=== PATIENT | female | born 1995 | race Caucasian/White ===

== ENCOUNTER 2017-09-13 13:54 | Inpatient (IN) | payer SELFPAY ==
--- NOTE | 2017-09-13 14:19 | ED ---
Psychiatric Complaint - HPI Summary HPI Summary: 22F w/ PMH of anxiety and depression presents with suicidal thought today. She states she occasionally has suicidal thought but today she felt like she was going to act on it. She states she was either going to drive to [facility] or drive off a bridge. She is seeing [facility] for mental health. She is on zoloft 25mg which she has been taking consistently. She take amitriptyline for chronic tension headaches. She states she has not been doing as well in school which is contributing to her depression. She has had a history of depression for 7 years but it has gotten worst this semester. She has a strong family and friend support system. She denies any drug or ETOH use. - History Of Current Complaint Chief Complaint: EDMentalHealth Time Seen by Provider: 09/13/17 13:55 - Allergies/Home Medications Allergies/Adverse Reactions: Allergies Allergy/AdvReac Type Severity Reaction Status Date / Time No Known Allergies Allergy Verified 09/13/17 14:14 Home Medications: Home Medications Amitriptyline TAB* [Elavil TAB*] 25 mg PO DAILY PRN 09/13/17 [History Confirmed 09/13/17] Sertraline* [Zoloft*] 25 mg PO DAILY 09/13/17 [History Confirmed 09/13/17] PMH/Surg Hx/FS Hx/Imm Hx Endocrine/Hematology History: Denies: Hx Anticoagulant Therapy Neurological History: Reports: Hx Headaches - Family History Known Family History: Positive: Other - anxiety, depression - Social History Alcohol Use: None Substance Use Type: Reports: None Hx Tobacco Use: No Review of Systems Negative: Fever Negative: Chest Pain Negative: Shortness Of Breath Positive: Depressed All Other Systems Reviewed And Are Negative: Yes Physical Exam Triage Information Reviewed: Yes Vital Signs Reviewed: Yes Appearance: Positive: Well-Appearing Skin: Positive: Warm, Dry Head/Face: Positive: Normal Head/Face Inspection Eyes: Positive: Normal, Conjunctiva Clear Respiratory/Lung Sounds: Positive: Clear to Auscultation, Breath Sounds Present Cardiovascular: Positive: Normal, RRR Abdomen Description: Positive: Nontender, Soft Bowel Sounds: Positive: Present Musculoskeletal: Positive: Normal Neurological: Positive: Normal Psychiatric: Positive: Depressed Diagnostics - Laboratory Result Diagrams: 09/13/17 14:25 09/13/17 14:25 Lab Statement: Any lab studies that have been ordered have been reviewed, and results considered in the medical decision making process. Course/Dx - Course Course Of Treatment: 22F w/ PMH of anxiety and depression presents with suicidal thought today. She states she occasionally has suicidal thought but today she felt like she was going to act on it. She states she was either going to drive to [facility] or drive off a bridge. She is seeing [facility] for mental health. She is on zoloft 25mg which she has been taking consistently. She take amitriptyline for chronic tension headaches. She states she has not been doing as well in school which is contributing to her depression. She has had a history of depression for 7 years but it has gotten worst this semester. She has a strong family and friend support system. She denies any drug or ETOH use. patient is medically clear for MHE. patient will be admitted voluntary. - Differential Dx/Clinical Impression Differential Diagnosis/HQI/PQRI: Positive: Anxiety, Depression, Suicidal Ideation Provider Diagnosis: Depression Discharge - Discharge Plan Condition: Stable [place] [place]
[2017-09-13 14:34] LABS: Hematocrit 42 % (35-47); Mean Corpuscular HGB Conc 33 g/dl (31-36); Mean Corpuscular Hemoglobin 30 pg (27-31); Mean Corpuscular Volume 91 fL (80-97); Mean Platelet Volume 8 um3 (7.4-10.4); Red Blood Count 4.62 10^6/ul (4.0-5.4); Red Cell Distribution Width 14 % (10.5-15); White Blood Count 10.2 10^3/ul (3.5-10.8)
[2017-09-13 14:50] LABS: ALT 15 U/L (7-52); AST 16 U/L (13-39); Albumin 4.8 g/dL (3.2-5.2); Alkaline Phosphatase 66 U/L (34-104); Anion Gap 7 mmol/L (2-11); BUN/Creatinine Ratio 14.8 (8-20); Blood Urea Nitrogen 12 mg/dL (6-24); CO2 Carbon Dioxide 25 mmol/L (22-32); Calcium 10.3 mg/dL (8.6-10.3); Chloride 104 mmol/L (101-111); EGFR African American 115.9 (>60); EGFR Non-African American 90.1 (>60); Globulin 3.3 g/dL (2-4); Glucose 91 mg/dL (70-100); Potassium 3.8 mmol/L (3.5-5.0); Sodium 136 mmol/L (133-145); Total Protein 8.1 g/dL (6.4-8.9)
[2017-09-13 14:55] LABS: Acetaminophen < 15 mcg/mL; Alcohol < 10 mg/dL (<10); Salicylate < 2.50 mg/dL (<30)
[2017-09-13 15:10] LABS: TSH (Thyroid Stimulating Horm) 0.73 mcIU/mL (0.34-5.60)
[2017-09-13 15:46] LABS: Urine Bacteria 1+ (Absent); Urine Bilirubin Negative (Negative); Urine Glucose Negative (Negative); Urine Nitrite Positive (Negative)
[2017-09-13 15:55] LABS: Benzodiazepine Urine Screen None Detected (None Detect)
[2017-09-14] MEDS ORDERED: Acetaminophen TAB* 325 MG PO PRN (02:19)
[2017-09-14] MEDS ORDERED: Al Hydrox/Mg Hydrox/Simet LIQ* 30 ML UDC PO PRN (02:19)
[2017-09-14 07:54] VITALS: BP 123/79
[2017-09-14] MEDS ORDERED: Sertraline* 25 MG TAB PO SCH (09:00)
[2017-09-14] MEDS: Vitamin THERAPEUTIC TAB PO SCH (09:57)
[2017-09-14 12:58] LABS: T4 5.57 mcg/mL (6.09-12.23)
[2017-09-14 13:04] LABS: Free T4 0.74 ng/dL (0.61-1.12)
[2017-09-14 13:12] LABS: Folate 15.16 ng/mL (>3.99)
[2017-09-14 13:14] LABS: Vitamin B12 215 pg/mL (180-914)
[2017-09-14] MEDS: FLUoxetine CAP* 20 MG PO SCH (15:39)
[2017-09-14] MEDS: clonazePAM TAB(*) 0.5 MG PO SCH (17:22)
[2017-09-14] MEDS ORDERED: Sulfamethox/Trimethoprim DS 800/160* TAB PO ONE (18:20)
[2017-09-14] MEDS ORDERED: Amitriptyline TAB* 25 MG PO SCH (21:00)
[2017-09-14] MEDS ORDERED: Amitriptyline TAB* 10 MG PO SCH (21:00)
[2017-09-14] MEDS ORDERED: Amitriptyline TAB* 10 MG PO ONE (23:00)
[2017-09-15] MEDS ORDERED: Sulfamethox/Trimethoprim DS 800/160* TAB PO SCH (09:00)
--- NOTE | 2017-09-15 10:53 | PN ---
Subjective - Subjective Service Type: [id number] [facility] Psyc Subjective: per nursing patient did very well overnight. upbeat. not appearing sad social with other patients. reading. optomistic about returning to school and following up with therapist and psychiatrist at [facility] outpatient clinic Objective - Appearance Appearance: Well Developed/Nourished Dysmorphic Features: No Hygiene: Normal Grooming: Well Kept - Behavior Psychomotor Activities: Normal Exhibits Abnormal Movement: No - Attitude and Relatedness Attitude and Relatedness: Appropriate Eye Contact: Good - Speech Quality: Unpressured Latencies: Normal Quantity: Appropriate - Mood Patient's Decription of Mood: "Good" - Affect Observed Affect: Non-labile Affect Consistent with: Euthymia - Thought Process Patient's Thought Process: Coherent Thought Content: No Passive Wish, No Suicidal Planning, No Homicidal Ideation, No Paranoid Ideation - Sensorium Experiencing Hallucinations: No, Sensorium is Clear Type of Hallucinations: Visual: No, Auditory: No, Command: No - Level of Consciousness Level of Consciousness: Alert Orientation: Yes Intact, Yes Orientated to Time, Yes Orientated to Place, Yes Orientated to Person - Impulse Control Impulse Control: Intact - Insight and Judgement Insight and Judgement: Good - Group Participation Particating in Group Activities: Yes - Medication Management Medication Management Adherence: Yes Assessment - Assessment Merits Inpatient Hospitalization: For Discharge Planning Inpatient DSM-IV Dx: Generalized Anxiety Disorder. Major Depressive disorder recurrent moderate Clinical Impression: met with patient and patient's father for 30 min session patient feel mood has improved and anxiety is greatly diminished since starting combination of medications. she is sleeping well. she has no suicidal ideation father feels that daughter is safe to be discharged. the plan is for her to return home with parents for the weekend. she will return to [place] on monday and has an appointment with her therapist and psychiatrist the day she returns. patient and I talked about low stress when she returns school. she has arranged to withdraw from two classes that she was not doing well in. she will continue taking the other three classes. she will have support from therapist in case she needs further modifications to be made at school Plan - Plan Treatment Plan: Name: HENRY CHANG Birthdate: 1995 [id number] Medications: Current Medications Acetaminophen (Tylenol Tab*) 650 mg PO Q4H PRN PRN Reason: PAIN or TEMP > 101 F Al Hydrox/Mg Hydrox/Simethicone (Maalox Plus*) 30 ml PO Q4H PRN PRN Reason: INDIGESTION Amitriptyline HCl (Elavil Tab*) 25 mg PO BEDTIME [facility] Last Admin: 09/14/17 22:42 Dose: Not Given Clonazepam (Klonopin Tab(*)) 0.25 mg PO 0900,1700 [facility] Last Admin: 09/14/17 17:22 Dose: 0.25 mg Fluoxetine HCl (Prozac Cap*) 20 mg PO DAILY [facility] Last Admin: 09/14/17 15:39 Dose: 20 mg Multivitamins (Theragran Tab*) 1 tab PO DAILY [facility] Last Admin: 09/14/17 09:57 Dose: 1 tab Trimethoprim/Sulfamethoxazole (Bactrim Ds 800/160 Tab*) 1 tab PO BID@0900,2100 [facility] - Discharge Plan Discharge Plan: Outpatient Follow Up - patient will follow up with her psychiatrist at [facility] on 09/18/2017. She will also see her Therapist weekly. parents have agreed to secure therapist for daughter so she can continue in therapy during school intercession Outpatient Program: Private Clinician(s) - Yadira Nowak at [facility] s outpatient clinic Additional Comments: patient will be discharged home today accompanied by parents d/c medications: klonpin 0.25 mg BID Prozac 20 mg qhs Elavil 25 mg QHS Septra DS one bid x 10 days
[2017-09-15] MEDS: Vitamin THERAPEUTIC TAB PO SCH (13:48)
[2017-09-15] MEDS: clonazePAM TAB(*) 0.5 MG PO SCH ×2 (13:48→17:03)
[2017-09-15] MEDS: FLUoxetine CAP* 20 MG PO SCH (13:48)
--- NOTE | 2017-09-15 19:14 | ADMNOTE ---
History - Objective HPI: THE FOLLOWING H AND P WAS PERFORMED ON 09/14/2017 DOCUMENTATION OF THE H AND P WAS PERFORMED ON 09/15/2017 Exam Appearance: Well Developed/Nourished Hygiene: Normal Grooming: Well Kept Psychomotor Activities: Normal Exhibits Abnormal Movement: No Attitude and Relatedness: Appropriate Eye Contact: Good - Speech Quality: Unpressured Latencies: Normal Quantity: Appropriate Patient's Decription of Mood: "Good" Observed Affect: Non-labile Affect Consistent with: Euthymia Patient's Thought Process: Coherent Thought Content: No Passive Wish, No Suicidal Planning, No Homicidal Ideation, No Paranoid Ideation Experiencing Hallucinations: No, Sensorium is Clear Type of Hallucinations: Visual: No, Auditory: No, Command: No Level of Consciousness: Alert Orientation: Yes Intact, Yes Orientated to Time, Yes Orientated to Place, Yes Orientated to Person Impulse Control: Intact Insight and Judgement: Good Impression - Impression Clinical Impression: met with patient and patient's father for 30 min session patient feel mood has improved and anxiety is greatly diminished since starting combination of medications. she is sleeping well. she has no suicidal ideation father feels that daughter is safe to be discharged. the plan is for her to return home with parents for the weekend. she will return to [place] on monday and has an appointment with her therapist and psychiatrist the day she returns. patient and I talked about low stress when she returns school. she has arranged to withdraw from two classes that she was not doing well in. she will continue taking the other three classes. she will have support from therapist in case she needs further modifications to be made at school Plan - Treatment Plan Treatment Plan: Name: HENRY CHANG Birthdate: 1995 [id number] Medications: Current Medications Acetaminophen (Tylenol Tab*) 650 mg PO Q4H PRN PRN Reason: PAIN or TEMP > 101 F Al Hydrox/Mg Hydrox/Simethicone (Maalox Plus*) 30 ml PO Q4H PRN PRN Reason: INDIGESTION Amitriptyline HCl (Elavil Tab*) 25 mg PO BEDTIME [facility] Last Admin: 09/14/17 22:42 Dose: Not Given Clonazepam (Klonopin Tab(*)) 0.25 mg PO 0900,1700 [facility] Last Admin: 09/15/17 17:03 Dose: 0.25 mg Fluoxetine HCl (Prozac Cap*) 20 mg PO DAILY [facility] Last Admin: 09/15/17 13:48 Dose: 20 mg Multivitamins (Theragran Tab*) 1 tab PO DAILY [facility] Last Admin: 09/15/17 13:48 Dose: 1 tab Trimethoprim/Sulfamethoxazole (Bactrim Ds 800/160 Tab*) 1 tab PO BID@0900,2100 [facility] Last Admin: 09/15/17 13:48 Dose: 1 tab
--- NOTE | 2017-09-15 19:15 | DCNOTE ---
DC Assessment - Assessment Clinical Impression: met with patient and patient's father for 30 min session patient feel mood has improved and anxiety is greatly diminished since starting combination of medications. she is sleeping well. she has no suicidal ideation father feels that daughter is safe to be discharged. the plan is for her to return home with parents for the weekend. she will return to [place] on monday and has an appointment with her therapist and psychiatrist the day she returns. patient and I talked about low stress when she returns school. she has arranged to withdraw from two classes that she was not doing well in. she will continue taking the other three classes. she will have support from therapist in case she needs further modifications to be made at school Inpatient DSM-IV Dx: Generalized Anxiety Disorder. Major Depressive disorder recurrent moderate Discharge Planning - Discharge Planning Medications: Current Medications Acetaminophen (Tylenol Tab*) 650 mg PO Q4H PRN PRN Reason: PAIN or TEMP > 101 F Al Hydrox/Mg Hydrox/Simethicone (Maalox Plus*) 30 ml PO Q4H PRN PRN Reason: INDIGESTION Amitriptyline HCl (Elavil Tab*) 25 mg PO BEDTIME [facility] Last Admin: 09/14/17 22:42 Dose: Not Given Clonazepam (Klonopin Tab(*)) 0.25 mg PO 0900,1700 [facility] Last Admin: 09/15/17 17:03 Dose: 0.25 mg Fluoxetine HCl (Prozac Cap*) 20 mg PO DAILY [facility] Last Admin: 09/15/17 13:48 Dose: 20 mg Multivitamins (Theragran Tab*) 1 tab PO DAILY [facility] Last Admin: 09/15/17 13:48 Dose: 1 tab Trimethoprim/Sulfamethoxazole (Bactrim Ds 800/160 Tab*) 1 tab PO BID@0900,2100 [facility] Last Admin: 09/15/17 13:48 Dose: 1 tab Discharge Planning: Prescriptions provided for discharge [] Yes [] No Follow up care details as per social work arrangements. Patient response to discharge plan: [] eager for discharge [] agreeable with discharge plan [] ambivalent about discharge [] disagrees with discharge today
== END 2017-09-15 17:05 | disposition home or self-care (01) | DRG 885 ==
LOC: ED 13:54 → BSU 21:50
PROVIDERS: ADMIT Psychiatry & Neurology Psychiatry; ATTEND Psychiatry & Neurology Psychiatry
DX: F33.1 Major depressive disorder, recurrent, moderate (principal); R45.851 Suicidal ideations; F41.1 Generalized anxiety disorder; G44.229 Chronic tension-type headache, not intractable
CPT/HCPCS: 36415; 80053; 80307; 80320; 80329; 81003; 81015; 82607; 82746; 84436; 84439; 84443; 84702; 85025; 87077; 87086; 87186; 99238; A9270-GY; G0480

== ENCOUNTER 2017-12-05 19:46 | Emergency (ER) | payer OTHER ==
[2017-12-06] MEDS ORDERED: Oseltamivir CAP* 75 MG CAP PO ONE (01:09)
--- NOTE | 2017-12-06 01:15 | ED ---
HPI Cardiac - HPI Summary HPI Summary: Patient here with chest pain and cough. She reports her chest pain started as a sharp pain in her chest going into her back yesterday - this has since dulled since her cough started today. Cough has been dry but she reports it starting to become somewhat productive. She also has some nasal congestion and mild sore throat along with a dull headache. Denies fevers, chills, nausea, vomiting, diarrhea, rash, abdominal pain, ear pain, neck stiffness, bloody cough. She is a history of pneumonia but reports this does not feel the same. She also has a history of mono but reports this also does not feel the same. She does not have asthma or other pulmonary or cardiac conditions. Admits to a recent history of strep throat which was treated with antibiotics and has improved. She denies smoking, recent travel or trauma or history of clotting disorder. She does have a Mirena IUD - otherwise no hormone use or h/o cancer. She attends college and has been exposed to other sick students. NOTE: pt was seen at [facility] earlier today and had a CXR - this was loaded into PACS for review. Read by Dr. Ramirez - normal, no acute findings. - History of Current Complaint Chief Complaint: EDUpperRespComplaint Stated Complaint: CHEST PAIN SENT FROM Time Seen by Provider: 12/05/17 23:59 Hx Obtained From: Patient Pain Intensity: 5 - Additional Pertinent History Primary Care Physician: [id number] - Allergy/Home Medications Allergies/Adverse Reactions: Allergies Allergy/AdvReac Type Severity Reaction Status Date / Time No Known Allergies Allergy Verified 12/05/17 20:00 PMH/Surg Hx/FS Hx/Imm Hx Previously Healthy: Yes - treated for strep pharyngitis over the past month Endocrine/Hematology History: Denies: Hx Anticoagulant Therapy Sensory History: Denies: Hx Contacts or Glasses, Hx Hearing Aid Opthamlomology History: Denies: Hx Contacts or Glasses EENT History: Reports: Pharyngitis - strep Neurological History: Reports: Hx Headaches Psychiatric History: Reports: Hx Anxiety, Hx Depression, Hx Community Mental Health Tx Denies: Hx Eating Disorder, Hx of Violent Episodes Against Others - Immunization History Immunizations Up to Date: Yes Infectious Disease History: No Infectious Disease History: Reports: History Other Infectious Disease - mononucleosis Denies: Traveled Outside the [place] in Last 30 Days - Family History Known Family History: Positive: None, Other - anxiety, depression - Social History Occupation: Student Lives: Dormitory/Roommates Alcohol Use: Occasionally Hx Substance Use: No Substance Use Type: Reports: None Hx Tobacco Use: No Smoking Status (MU): Never Smoked Tobacco Amount Used/How Often: has not used tobacco products in the last 30 days Review of Systems Positive: Fatigue. Negative: Fever, Chills, Skin Diaphoresis Eyes: Negative Negative: Drainage, Erythema Positive: Sore Throat, Nasal Discharge. Negative: Ear Ache Positive: Chest Pain. Negative: Palpitations Positive: Cough. Negative: Shortness Of Breath Gastrointestinal: Negative Positive: no symptoms reported Musculoskeletal: Negative Negative: Arthralgia, Myalgia Skin: Negative Positive: Headache Psychological: Normal All Other Systems Reviewed And Are Negative: Yes Physical Exam Triage Information Reviewed: Yes Vital Signs On Initial Exam: Initial Vitals Temp Pulse Resp BP Pulse Ox 98.4 F 106 20 137/75 97 12/05/17 19:50 12/05/17 19:50 12/05/17 19:50 12/05/17 19:50 12/05/17 19:50 Vital Signs Reviewed: Yes Appearance: Positive: Well-Appearing, No Pain Distress, Well-Nourished Skin: Positive: Warm, Skin Color Reflects Adequate Perfusion, Dry Head/Face: Positive: Normal Head/Face Inspection Eyes: Positive: Normal, EOMI, Conjunctiva Clear. Negative: Conjunctiva Inflammed, Discharge ENT: Positive: Hearing grossly normal, Pharynx normal, Nasal congestion, TMs normal, Uvula midline. Negative: Pharyngeal erythema, Nasal drainage, Tonsillar swelling - +3 pink appear healthy, Tonsillar exudate, Trismus, Muffled voice, Hoarse voice, Sinus tenderness Neck: Positive: Supple, Nontender, No Lymphadenopathy Respiratory/Lung Sounds: Positive: Clear to Auscultation, Breath Sounds Present. Negative: Rales, Rhonchi, Wheezes Cardiovascular: Positive: Normal, RRR, S1, S2. Negative: Murmur, Rub Abdomen Description: Positive: Nontender, No Organomegaly, Soft Bowel Sounds: Positive: Present Musculoskeletal: Positive: Normal, Strength/ROM Intact Neurological: Positive: Normal, Sensory/Motor Intact, Alert, Oriented to Person Place, Time, CN Intact II-III Psychiatric: Positive: Normal Diagnostics - Vital Signs Vital Signs Temp Pulse Resp BP Pulse Ox 02/06/18 22:40 99.8 F 85 16 129/71 98 12/05/17 19:50 98.4 F 106 20 137/75 97 - Laboratory Lab Results: Lab Results 12/06/17 Range/Units 00:21 Influenza A (Rapid) Positive H (Negative) Influenza B (Rapid) Negative (Negative) Lab Statement: Any lab studies that have been ordered have been reviewed, and results considered in the medical decision making process. Disposition - Course Course Of Treatment: Influenza A. CXR ordered given h/o pneumonia and w/ CP today. CXR from earlier today appears normal. Pt provided with tamiflu and supportive care instructions. Will return to ED if danger s/sx present. - Diagnoses Provider Diagnoses: Influenza A - Physician Notifications Discussed Care Of Patient With: Renetta Ramirez Discharge - Discharge Plan Condition: Stable Disposition: HOME Prescriptions: Oseltamivir CAP* [Tamiflu CAP*] 75 mg PO BID #9 cap Patient Education Materials: Influenza (ED) Forms: *School Release Referrals: [facility] - John MCKAY [Primary Care Provider] - Additional Instructions: You appear to have the flu. Complete your tamiflu and implement the following to aid in your symptom relief: Perform nasal washes/netti pot 2 times per day with 8 ounces of warm water plus a quarter teaspoon of salt or saline nasal spray as needed Perform throat gargles with warm salt water as needed Drink 60+ ounces of water daily Sleep 8+ hours per night Avoid dairy and sugar Drink hot herbal/decaf tea with lemon and honey Drink chicken broth (preferably organic, free range chicken) Using humidifier in your house, but especially near bed at night. You may also keep hiome temperature at 68F or less. Try facial steam with or without eucalyptus essential oil or Vicks vapor rub for decongestion Cough drops Delsym cough syrup for cough suppression Avoid smoke, candles, perfume/cologne, air freshener's, scented lotions, etc. Take ibuprofen alternating with acetaminophen for fever, pain Consider taking vitamin D 3 5000 IUs and vitamin C 1000 mg every day daily during illness *If you develop fever >103F despite trying medications, intractable vomiting/ diarrhea, dizziness, chest pain, shortness of breath, syncope, return to ED
[2017-12-06 02:17] VITALS: BP 112/71
== END 2017-12-06 02:16 | disposition home or self-care (01) ==
LOC: ED 19:46
DX: J09.X2 Influenza due to identified novel influenza A virus with other respiratory manifestations (principal)
CPT/HCPCS: 87502; 93005; 99282; A9270-GY